=== PATIENT | male | born 1965 | race Caucasian/White ===

== ENCOUNTER 2021-10-23 21:56 | Emergency (ER) | payer OTHER, SELFPAY ==
[2021-10-23 22:03] VITALS: BP 137/85; PULSE 54; RESP 15; TEMP 36.4; O2SAT 100
--- NOTE | 2021-10-23 22:39 | ED.GENADULT ---
HPI - General Adult General Chief complaint: Nausea/Vomiting/Diarrhea Stated complaint: dehydrated from colonoscopy prep Time Seen by Provider: 10/23/21 22:35 Source: patient Mode of arrival: ambulatory Limitations: no limitations History of Present Illness HPI narrative: Patient is a 56-year-old male complaining of very dehydrated described as generalized weakness, cold sweats, abdominal cramping and diarrhea after taking his colon prep today. Patient denies any chest pain, shortness of breath, fever or chills. Related Data Allergies Allergy/AdvReac Type Severity Reaction Status Date / Time No Known Allergies Allergy Verified 10/23/21 22:06 Review of Systems Review of Systems: All systems reviewed & are unremarkable except as noted in HPI and below Constitutional: Constitutional: Denies body ache(s), Denies chills, Denies excessive sweating, Denies fatigue, Denies fever(s), Denies headache(s), Denies lethargy, Denies malaise and Denies weight loss Eyes: Eyes: Denies blurry vision, Denies change in vision and Denies loss of vision ENT: Denies dizziness, Denies ear discharge, Denies headache(s), Denies lip swelling, Denies epistaxis, Denies nasal congestion, Denies neck pain, Denies throat swelling and Denies tongue swelling Cardiovascular: Cardiovascular: Denies chest pain, Denies chest pain at rest, Denies chest pain with activity, Denies diaphoresis, Denies rapid heart rate, Denies edema, Denies irregular heart rhythm, Denies lightheadedness, Denies palpitations, Denies dyspnea and Denies dyspnea on exertion Respiratory: Respiratory: Denies chest congestion, Denies cough, Denies hemoptysis, Denies dyspnea and Denies dyspnea on exertion Gastrointestinal: Gastrointestinal: Denies melena, Denies hematochezia, Denies nausea, Denies vomiting and Denies hematemesis Musculoskeletal: Musculoskeletal: Denies abnormal gait, Denies deformity, Denies joint swelling, Denies limited range of motion, Denies neck pain and Denies numbness Neurologic: Denies Abnormal speech present, Denies abnormal gait, Denies confusion, Denies dizziness, Denies headache(s), Denies focal weakness, Denies loss of vision, Denies numbness, Denies Other visual disturbances and Denies Sensory deficit (Neuro) Psychiatric: Psychiatric: Denies confusion, Denies depression, Denies auditory hallucinations, Denies homicidal ideation and Denies suicidal ideation Endocrine: Endocrine: Denies cold intolerance, Denies excessive sweating, Denies fatigue, Denies heat intolerance and Denies palpitations Hematologic/Lymphatic: Hematologic/Lymphatic: Denies easy bleeding and Denies easy bruising Allergic/Immunologic: Allergic/Immunologic: Denies lip swelling, Denies throat swelling and Denies tongue swelling PMFSH Past Medical History Medical History Hyperlipidemia Family History Family History Father Family history of gout Hypertension Family history of elevated blood lipids Mother Family history of elevated blood lipids Family history of arthritis Sibling Cerebrovascular accident Family history of kidney disease Other Family history of allergic disorder Social History Social History Smoking packs per day: 1 Smoking cigarettes per day: 20.0 Years smoked: 20 Smoking pack-years: 20.00 Smoking status: Former smoker Tobacco type: cigarettes Second hand tobacco smoke exposure: No Smoking end date: 09/13/12 Alcohol intake: current Drinks per week: 4 Alcohol use details: BEERS Substance use: current Substance use type: marijuana Other [facility] details: [facility] Spiritual care concerns: No Exam Const: General: cooperative, healthy appearing, comfortable, no acute distress, well developed, alert and awake; No confusion Orientation/consciousness: o
[2021-10-23] MEDS: SODIUM CHLORIDE 0.9% IV 1,000 ML 999 ML IV CONT (22:53)
[2021-10-23 23:01] VITALS: BP 138/78; PULSE 61; RESP 18; O2SAT 98
[2021-10-23 23:16] LABS: Basophils Absolute Auto 0.1 K/mm3 (0.0-0.1); Basophils Percent Auto 0.5 % (0.2-1.2); Eosinophils Absolute Auto 0.2 K/mm3 (0-0.3); Eosinophils Percent Auto 1.7 % (0-4.4); Hematocrit 44.8 % (42.0-52.0); Immature Granulocyte Absolute 0.03 K/mm3 (0.00-0.031); Immature Granulocyte Percent A 0.3 % (0-0.5); Lymphocytes Absolute Auto 2.19 K/mm3 (0.9-3.2); Lymphocytes Percent Auto 20.2 % (18.3-44.2); Mean Corpuscular HGB Conc 33.5 g/dl (32-36); Mean Corpuscular Volume 89.6 fl (80-100); Mean Platelet Volume 10.8 fl (7.4-10.4); Monocytes Absolute Auto 0.7 K/mm3 (0.1-0.6); Monocytes Percent Auto 6.7 % (2.6-8.5); Neutrophils Absolute Auto 7.6 K/mm3 (1.3-6.7); Neutrophils Percent Auto 70.6 % (45.5-73.1); Platelet Count Result 162 k/mm3 (150-375); Red Cell Distribution Width 13.2 % (11.5-14.5); White Blood Count 10.8 K/mm3 (4.5-10.0)
[2021-10-23 23:40] LABS: Alanine Aminotransferase 25 U/L (4-50); Albumin Level 3.9 g/dL (3.5-5.1); Alkaline Phosphatase 45 U/L (38-126); Anion Gap 8 mmol/L (8-16); Aspartate Amino Transferase 28 U/L (17-59); Bilirubin,Total 0.7 mg/dL (0.2-1.3); Blood Urea Nitrogen 11 mg/dL (9-20); Calcium 8.5 mg/dL (8.4-10.2); Carbon Dioxide 23 mmol/L (22-30); Chloride 105 mmol/L (98-107); Estimated CRCL calculation 82 ml/min; Estimated Glomerular Filt Rate > 60; Glucose 114 mg/dL (65-110); Lipase 186 U/L (23-300); Potassium 3.7 mmol/L (3.4-5.0); Sodium 136 mmol/L (137-145)
[2021-10-24 00:05] VITALS: BP 150/97; PULSE 66; RESP 15; O2SAT 100
== END 2021-10-24 00:20 | disposition home or self-care (01) ==
PROVIDERS: Emergency Provider Emergency Medicine; PCP Internal Medicine
DX: E86.0 Dehydration (principal); Z87.891 Personal history of nicotine dependence; E78.5 Hyperlipidemia, unspecified
CPT/HCPCS: 36415; 80053; 83690; 85025; 96360; 99283; J7030

== ENCOUNTER 2021-10-24 01:11 | Day surgery (SDC) | payer OTHER, SELFPAY ==
[2021-10-15 11:41] VITALS: BMI 32.1
--- NOTE | 2021-10-23 12:55 | P.PNAN_ITS ---
Anes - Initial Pre Proc Eval Procedure: Operation Date: 10/24/21 08:30 Proposed Procedures p Screening Colonoscopy - Tim Oneal MD Date/Time: 10/23/21 12:55 Surgeon: Tim Oneal MD Pre Op Diagnosis: neoplasm screening Patient Data Age: 56 Gender: M Height: 1.7 m Weight: 93 kg Allergies Allergy/AdvReac Type Severity Reaction Status Date / Time No Known Allergies Allergy Verified 10/24/21 07:35 Home Medications Medication Instructions Recorded Confirmed Type Wellbutrin XL 150 mg 24 hr tablet, 150 mg PO QAM #90 tablet NS 12/19/20 10/24/21 Rx extended release atorvastatin 20 mg tablet 20 mg PO DAILY #90 tablet 07/01/21 10/24/21 Rx Patient hx anesthesia problems: none Family hx anesthesia problems: none Results Review: All pre-operative results and documents have been reviewed as part of the pre-operative evaluation. PMFSH Past Medical History Medical History Hyperlipidemia Family History Family History Father Family history of gout Hypertension Family history of elevated blood lipids Mother Family history of elevated blood lipids Family history of arthritis Sibling Cerebrovascular accident Family history of kidney disease Other Family history of allergic disorder Social History Social History Smoking packs per day: 1 Smoking cigarettes per day: 20.0 Years smoked: 20 Smoking pack-years: 20.00 Smoking status: Former smoker Tobacco type: cigarettes Second hand tobacco smoke exposure: No Smoking end date: 09/13/12 Alcohol intake: current Drinks per week: 4 Alcohol use details: BEERS Substance use: current Substance use type: marijuana Other substance usage details: OCC. [facility] Living arrangements: with family Spiritual care concerns: No Anes - Eval Final PreProcedure Day of Procedure 10/23/21 12:55 Patient weight: obese Heart: regular rate and rhythm Lungs: clear to auscultation and normal air movement Airway: Mallampati scale class II Neurological: alert and oriented Last oral intake: >/= 8 hours ASA classification: II Emergent: no Anesthetic plan: proceed Anesthesia type and monitoring: general GIVS and standard monitoring Results Review: All pre-operative results and documents have been reviewed as part of the pre-operative evaluation. Informed Consent: The patient's anesthetic plan and its attendant risks and benefits were discussed with the patient/family/POA. Questions were solicited and answers provided to the satisfaction of the patient/family/POA.
[2021-10-24 07:36] VITALS: BP 140/84; PULSE 60; RESP 16; TEMP 36.3; O2SAT 99; BMI 32.8
[2021-10-24] MEDS: LACTATED RINGERS 1,000 ML 150 ML IV CONT (07:52)
--- NOTE | 2021-10-24 08:18 | PM.HPGS ---
History of Present Illness History of Present Illness Consent: Risks, benefits, and alternatives have been discussed and questions answered. Patient agrees to proceed with procedure. Chief complaint: neoplasm screening Narrative: Leonardo Patino is a 56 year old male here for first screening colonoscopy. He had ER visit yesterday because dehydration after bowel prep. Review of Systems Constitutional: Constitutional: Denies headache(s) and Denies weakness Eyes: Eyes: Denies blurry vision ENT: Reports Normal hearing present, Denies headache(s) and Denies neck pain Cardiovascular: Cardiovascular: Denies chest pain and Denies dyspnea Respiratory: Respiratory: Denies dyspnea Gastrointestinal: Gastrointestinal: Reports no additional gastrointestinal complaints Genitourinary: Genitourinary: Denies dysuria Musculoskeletal: Musculoskeletal: Denies neck pain Integumentary/Breasts: Skin/Breast: Denies dry skin Neurologic: Reports Normal hearing present, Denies headache(s) and Denies weakness Psychiatric: Psychiatric: Denies anxiety Endocrine: Endocrine: Denies change in body appearance Hematologic/Lymphatic: Hematologic/Lymphatic: Denies easy bleeding Allergic/Immunologic: Allergic/Immunologic: Denies urticaria PMFSH Past Medical History Medical History (Updated 10/24/21 @ 08:18 by Tim Oneal MD) Colon cancer screening Hyperlipidemia Family History Family History Father Family history of gout Hypertension Family history of elevated blood lipids Mother Family history of elevated blood lipids Family history of arthritis Sibling Cerebrovascular accident Family history of kidney disease Other Family history of allergic disorder Social History Social History Smoking packs per day: 1 Smoking cigarettes per day: 20.0 Years smoked: 20 Smoking pack-years: 20.00 Smoking status: Former smoker Tobacco type: cigarettes Second hand tobacco smoke exposure: No Smoking end date: 09/13/12 Alcohol intake: current Drinks per week: 4 Alcohol use details: BEERS Substance use: current Substance use type: marijuana Other substance usage details: [facility] Living arrangements: with family Spiritual care concerns: No Meds Home Medications and Allergies Home Medications Medication Instructions Recorded Confirmed Type Wellbutrin XL 150 mg 24 hr tablet, 150 mg PO QAM #90 tablet NS 12/19/20 10/24/21 Rx extended release atorvastatin 20 mg tablet 20 mg PO DAILY #90 tablet 07/01/21 10/24/21 Rx Allergies Allergy/AdvReac Type Severity Reaction Status Date / Time No Known Allergies Allergy Verified 10/24/21 07:35 Vital Signs Vital Signs - 24 hr 10/24/21 07:36 Temperature 97.3 F L Pulse Rate 60 Respiratory Rate 16 Blood Pressure 140/84 Pulse Oximetry 99 Exam Const: General: comfortable and no acute distress HENMT: General nose exam: Normal nares present Eyes: General: appearance normal, both eyes and all related structures Neck: Neck: no JVD Resp: Auscultation: clear to auscultation bilaterally Cardio: Rate: regular rate Rhythm: regular rhythm GI: Inspection: non-distended GI Palp: Yes Soft to palpation Skin: General skin exam: normal color Neuro: General: gait normal Speech: normal speech Extrem: General: normal to inspection Psych: Mental Status: mental status grossly normal Assessment and Plan Assessment and plan (1) Colon cancer screening: Code(s): Z12.11 - Encounter for screening for malignant neoplasm of colon Status: Acute Assessment and Plan: colonoscopy
[2021-10-24 08:41] VITALS: BP 113/73; PULSE 80; RESP 18; O2SAT 98
[2021-10-24 08:51] VITALS: BP 128/96; PULSE 72; RESP 20; O2SAT 98
[2021-10-24 09:01] VITALS: BP 130/92; PULSE 74; RESP 18; O2SAT 98
== END 2021-10-24 09:10 | disposition home or self-care (01) ==
PROVIDERS: PCP Internal Medicine; Visit Provider Internal Medicine Gastroenterology
PROC: 0DJD8ZZ Inspection of Lower Intestinal Tract, Via Natural or Artificial Opening Endoscopic (ICD-10-PCS; CPT 45378; principal; 2021-10-24 08:30)
DX: Z12.11 Encounter for screening for malignant neoplasm of colon (principal); K57.30 Diverticulosis of large intestine without perforation or abscess without bleeding; K64.8 Other hemorrhoids; E78.5 Hyperlipidemia, unspecified; Z87.891 Personal history of nicotine dependence; F12.90 Cannabis use, unspecified, uncomplicated; E66.9 Obesity, unspecified; Z68.32 Body mass index [BMI] 32.0-32.9, adult
CPT/HCPCS: 45378; J2001; J2704; J7120

== ENCOUNTER 2022-06-29 10:30 | Outpatient (CLI) | payer OTHER, SELFPAY ==
[2022-06-29 20:12] LABS: Alanine Aminotransferase 37 U/L (6-50); Albumin Level 4.8 g/dL (3.5-5.1); Alkaline Phosphatase 68 U/L (38-126); Anion Gap 11 mmol/L (8-16); Aspartate Amino Transferase 32 U/L (17-59); Bilirubin,Total 0.7 mg/dL (0.2-1.3); Blood Urea Nitrogen 14 mg/dL (9-20); Calcium 9.6 mg/dL (8.4-10.2); Carbon Dioxide 26 mmol/L (22-30); Chloride 101 mmol/L (98-107); Cholesterol 149 mg/dL (0-200); Estimated Glomerular Filt Rate > 60; Glucose 112 mg/dL (65-110); HDL Direct 45 mg/dL; Potassium 4.5 mmol/L (3.4-5.0); Sodium 138 mmol/L (137-145); Triglycerides 150 mg/dL (<150)
[2022-06-29 20:25] LABS: LDL Cholesterol Direct 72 mg/dL
[2022-06-29 20:42] LABS: Prostate Specific Antigen 0.5 ng/mL (< OR = 4.0)
== END 2022-06-29 10:31 | disposition home or self-care (01) ==
LOC: ANHGOSHLAB 10:30
PROVIDERS: PCP Family Medicine; Visit Provider Family Medicine
DX: Z12.5 Encounter for screening for malignant neoplasm of prostate (principal); E78.5 Hyperlipidemia, unspecified; Z13.228 Encounter for screening for other metabolic disorders
CPT/HCPCS: 36415; 80053; 80061; 84153; G0103

== ENCOUNTER 2023-07-06 09:38 | Outpatient (CLI) | payer OTHER, SELFPAY ==
[2023-07-06 12:51] LABS: Alanine Aminotransferase 33 U/L (6-50); Albumin Level 4.8 g/dL (3.5-5.1); Alkaline Phosphatase 57 U/L (38-126); Anion Gap 6 mmol/L (8-16); Aspartate Amino Transferase 45 U/L (17-59); Blood Urea Nitrogen 17 mg/dL (9-20); Calcium 9.6 mg/dL (8.4-10.2); Carbon Dioxide 31 mmol/L (22-30); Chloride 100 mmol/L (98-107); Cholesterol 131 mg/dL (0-200); Estimated Glomerular Filt Rate > 60; Glucose 98 mg/dL (65-110); HDL Direct 37 mg/dL; Potassium 4.5 mmol/L (3.4-5.0); Sodium 137 mmol/L (137-145); Triglycerides 136 mg/dL (<150)
[2023-07-06 13:02] LABS: LDL Cholesterol Direct 68 mg/dL
[2023-07-06 13:18] LABS: Prostate Specific Antigen 0.4 ng/mL (< OR = 4.0)
== END 2023-07-06 09:39 | disposition home or self-care (01) ==
LOC: ANHGOSHLAB 09:39
PROVIDERS: PCP Family Medicine; Visit Provider Family Medicine
DX: Z12.5 Encounter for screening for malignant neoplasm of prostate (principal); E78.5 Hyperlipidemia, unspecified; Z13.228 Encounter for screening for other metabolic disorders
CPT/HCPCS: 36415; 80053; 80061; 84153; G0103

== ENCOUNTER 2024-07-12 08:07 | Outpatient (CLI) | payer OTHER, SELFPAY ==
[2024-07-12 13:40] LABS: Anion Gap 8 mmol/L (4-12); Blood Urea Nitrogen 13 mg/dL (9-20); Calcium 8.8 mg/dL (8.4-10.2); Carbon Dioxide 29 mmol/L (22-30); Chloride 103 mmol/L (98-107); Estimated Glomerular Filt Rate > 60; Glucose 103 mg/dL (65-110); Potassium 4.1 mmol/L (3.4-5.0); Sodium 140 mmol/L (137-145)
== END 2024-07-12 08:08 | disposition home or self-care (01) ==
LOC: ANHGOSHLAB 08:08
PROVIDERS: PCP Family Medicine; Visit Provider Family Medicine
DX: Z13.228 Encounter for screening for other metabolic disorders (principal)
CPT/HCPCS: 36415; 80048

== ENCOUNTER 2024-07-28 09:25 | Outpatient (CLI) | payer OTHER, SELFPAY ==
[2024-07-28 12:10] LABS: Alanine Aminotransferase 24 U/L (6-50); Albumin Level 4.4 g/dL (3.5-5.1); Alkaline Phosphatase 56 U/L (38-126); Anion Gap 8 mmol/L (4-12); Aspartate Amino Transferase 42 U/L (17-59); Bilirubin,Total 0.7 mg/dL (0.2-1.3); Blood Urea Nitrogen 17 mg/dL (9-20); Calcium 9.2 mg/dL (8.4-10.2); Carbon Dioxide 28 mmol/L (22-30); Chloride 102 mmol/L (98-107); Cholesterol 139 mg/dL (0-200); Estimated Glomerular Filt Rate > 60; Glucose 102 mg/dL (65-110); HDL Direct 39 mg/dL; Potassium 4.2 mmol/L (3.4-5.0); Sodium 138 mmol/L (137-145); Triglycerides 208 mg/dL (<150)
[2024-07-28 12:18] LABS: LDL Cholesterol Direct 59 mg/dL
[2024-07-28 12:35] LABS: Prostate Specific Antigen 0.5 ng/mL (< OR = 4.0)
== END 2024-07-28 09:26 | disposition home or self-care (01) ==
PROVIDERS: PCP Family Medicine; Visit Provider Family Medicine
DX: E78.5 Hyperlipidemia, unspecified (principal); R53.83 Other fatigue; Z12.5 Encounter for screening for malignant neoplasm of prostate; Z13.228 Encounter for screening for other metabolic disorders
CPT/HCPCS: 36415; 80053; 80061; 84153; 84402; 84403; G0103

== ENCOUNTER 2025-05-22 09:48 | Outpatient (CLI) | payer OTHER, SELFPAY ==
[2025-05-22 13:08] LABS: Hematocrit 44.2 % (42.0-52.0); Hemoglobin 14.5 g/dL (14.0-18.0); Immature Granulocyte Percent A 0.2 % (0-0.5); Lymphocytes Absolute Auto 2.75 K/mm3 (0.9-3.2); Mean Corpuscular HGB Conc 32.8 g/dl (32-36); Mean Corpuscular Hemoglobin 28.6 pg (26-34); Mean Corpuscular Volume 87.2 fl (80-100); Nucleated Red Blood Cells Absolute Auto 0.000 K/mm3 (0.0-0.012); Nucleated Red Blood Cells Perc 0.0 % (0.0-0.2); Platelet Count Result 222 k/mm3 (150-375); Red Blood Count 5.07 M/mm3 (4.6-6.20); White Blood Count 8.2 K/mm3 (4.5-10.0)
[2025-05-22 13:21] LABS: Alanine Aminotransferase 27 U/L (6-50); Albumin Level 4.5 g/dL (3.5-5.1); Alkaline Phosphatase 50 U/L (38-126); Anion Gap 8 mmol/L (4-12); Aspartate Amino Transferase 42 U/L (17-59); Bilirubin,Total 0.8 mg/dL (0.2-1.3); Blood Urea Nitrogen 16 mg/dL (9-20); Calcium 9.6 mg/dL (8.4-10.2); Carbon Dioxide 28 mmol/L (22-30); Chloride 102 mmol/L (98-107); Estimated Glomerular Filt Rate > 60; Glucose 111 mg/dL (65-110); Potassium 4.4 mmol/L (3.4-5.0); Sodium 138 mmol/L (137-145); Total Protein 7.6 g/dL (6.3-8.2)
== END 2025-05-22 09:49 | disposition home or self-care (01) ==
LOC: ANHGOSHLAB 09:49
PROVIDERS: PCP Family Medicine; Visit Provider Family Medicine
DX: F34.1 Dysthymic disorder (principal); E78.2 Mixed hyperlipidemia; Z00.00 Encounter for general adult medical examination without abnormal findings
CPT/HCPCS: 36415; 80053; 82172; 82306; 85025